=== PATIENT | male | born 1970 | race Caucasian/White ===

== ENCOUNTER → 2020-02-04 | Outpatient (CLI) | payer OTHER | LOC: M.RAD 13:46 | PROVIDERS: ATTEND Orthopaedic Surgery | DX: M20.11 Hallux valgus (acquired), right foot (principal); M20.12 Hallux valgus (acquired), left foot; M79.89 Other specified soft tissue disorders; M77.31 Calcaneal spur, right foot; M77.32 Calcaneal spur, left foot ==